=== PATIENT | female | born 1995 | race Hispanic/Latino ===

== ENCOUNTER 2018-02-05 19:11 | Emergency (ER) | payer MEDICAID ==
[2018-02-05] MEDS ORDERED: ACETAMINOPHEN 325 MG TAB ONE (19:27)
[2018-02-05 19:47] LABS: APPEARANCE,URINE Turbid (CLEAR); BILIRUBIN,URINE Negative (NEGATIVE); COLOR,URINE Yellow (YELLOW); GLUCOSE, URINE (UA) >=1000 mg/dL (NEGATIVE); KETONES,URINE Trace mg/dL (NEGATIVE); LEUKOCYTE ESTERASE ,URINE Moderate (NEGATIVE); NITRATE,URINE Negative (NEGATIVE); OCCULT BLOOD,URINE Negative (NEGATIVE); PROTEIN,URINE Negative (NEGATIVE)
[2018-02-05 20:01] LABS: BACTERIA,URINE Many /HPF (None Seen); MUCUS,URINE None Seen LPF (None Seen); RBC,URINE 0-1 /HPF (0-1); SQUAMOUS EPITHELIAL CELL,UR Many /HPF (0-2); TRICHOMONAS,URINE None Seen /LPF (None Seen); YEAST,URINE BUDDING Many /HPF (None Seen)
== END 2018-02-05 20:44 | disposition home or self-care (01) ==
LOC: EDH 19:11
DX: O26.892 Other specified pregnancy related conditions, second trimester (principal); O23.42 Unspecified infection of urinary tract in pregnancy, second trimester; B37.49 Other urogenital candidiasis; G44.209 Tension-type headache, unspecified, not intractable; O24.419 Gestational diabetes mellitus in pregnancy, unspecified control; Z3A.15 15 weeks gestation of pregnancy
CPT/HCPCS: 81001; 82948

== ENCOUNTER 2018-09-11 03:05 | Emergency (ER) | payer MEDICAID ==
[~2018-09-11 03:05] MED LIST: PREN1TAB80 PO
[2018-09-11 03:48] LABS: APPEARANCE,URINE Clear (CLEAR); BILIRUBIN,URINE Negative (NEGATIVE); COLOR,URINE Yellow (YELLOW); GLUCOSE, URINE (UA) Negative (NEGATIVE); KETONES,URINE Negative (NEGATIVE); LEUKOCYTE ESTERASE ,URINE Trace (NEGATIVE); NITRATE,URINE Negative (NEGATIVE); OCCULT BLOOD,URINE Small (NEGATIVE); PROTEIN,URINE Negative (NEGATIVE)
[2018-09-11 03:55] LABS: AMPHET/METH SCREEN,URINE NEGATIVE (NEGATIVE); BARBITURATE SCREEN, URINE NEGATIVE (NEGATIVE); BENZODIAZEPINES SCREEN,URINE NEGATIVE (NEGATIVE); CANNABINOID SCREEN,URINE NEGATIVE (NEGATIVE); COCAINE SCREEN,URINE NEGATIVE (NEGATIVE); OPIATE SCREEN,URINE NEGATIVE (NEGATIVE); PHENCYCLIDINE SCREEN,URINE NEGATIVE (NEGATIVE)
[2018-09-11 03:56] LABS: AMORPHOUS SEDIMENT,UR Moderate /LPF (None Seen); BACTERIA,URINE Few /HPF (None Seen); MUCUS,URINE Many LPF (None Seen); RBC,URINE None Seen /HPF (0-1); SQUAMOUS EPITHELIAL CELL,UR Moderate /HPF (0-2)
[2018-09-11] MEDS ORDERED: ONDANSETRON HCL 4 MG/2 ML VIAL ONE (03:57)
[2018-09-11] MEDS ORDERED: KETOROLAC TROMETHAMINE 30MG/ML ONE (03:57)
[2018-09-11 03:58] LABS: BASOPHILS % (AUTO) 0.5 % (0.0-5.0); EOSINOPHILS % (AUTO) 1.6 % (0.0-8.0); HEMATOCRIT 39.5 % (36-48); LYMPHOCYTES % (AUTO) 20.8 % (21.0-51.0); MEAN CORPUSCULAR HEMOGLOBIN 26.1 pg (27.0-33.0); MEAN CORPUSCULAR HGB CONC 32.1 g/dL (32.0-36.0); MEAN CORPUSCULAR VOLUME 81.4 fL (79-99); MONOCYTES % (AUTO) 5.3 % (3.0-13.0); NEUTROPHILS % (AUTO) 71.8 % (40.0-77.0); NUCLEATED RED BLOOD CELLS 0.2 % (0.0-0.19); PLATELET COUNT (AUTO) 252 K/uL (130-400); RED BLOOD CELL COUNT(AUTO) 4.85 MIL/uL (4.00-5.50); RED CELL DISTRIBUTION WIDTH 16.1 % (11.0-15.5); WHITE BLOOD COUNT (AUTO) 13.2 K/uL (4.8-10.8)
[2018-09-11 04:17] LABS: CREATININE 0.8 mg/dL (0.5-1.5); POTASSIUM 3.7 mmol/L (3.5-5.1)
[2018-09-11 04:21] LABS: ALBUMIN 3.8 g/dL (3.5-5.0); BILIRUBIN,TOTAL 0.3 mg/dL (0.2-1.0); TOTAL PROTEIN, SERUM 7.9 g/dL (6.0-8.3)
== END 2018-09-11 04:51 | disposition home or self-care (01) ==
LOC: EDH 03:05
DX: K80.20 Calculus of gallbladder without cholecystitis without obstruction (principal); R03.0 Elevated blood-pressure reading, without diagnosis of hypertension
CPT/HCPCS: 36415; 76705; 80053; 80305; 81001; 81025; 82150; 83690; 85025; 96374; 96375; 99284; J1885; J2405

== ENCOUNTER 2020-11-10 16:45 | Observation (INO) | payer MEDICAID ==
[~2020-11-10] VITALS: Ht 154.9 cm; Wt 98.4 kg
[2020-11-10 18:14] LABS: APPEARANCE,URINE Cloudy (CLEAR); BILIRUBIN,URINE Negative (NEGATIVE); COLOR,URINE Yellow (YELLOW); GLUCOSE, URINE (UA) TRACE mg/dL (NEGATIVE); KETONES,URINE Negative (NEGATIVE); LEUKOCYTE ESTERASE ,URINE Large (NEGATIVE); NITRATE,URINE Negative (NEGATIVE); OCCULT BLOOD,URINE Negative (NEGATIVE); PROTEIN,URINE Negative (NEGATIVE)
[2020-11-10 18:35] LABS: BACTERIA,URINE Many /HPF (None Seen); RBC,URINE None Seen /HPF (0-1)
[2020-11-10] MEDS ORDERED: LACTATED RINGERS 1000ML IV SCH (18:45)
[2020-11-10 19:24] VITALS: BP 141/65
[2020-11-10] MEDS ORDERED: TERBUTALINE SULFATE VIAL 1MG/ML SQ SCH (20:00)
== END 2020-11-10 22:30 | disposition home or self-care (01) ==
LOC: EDH 16:45 → LDH 16:46
PROVIDERS: ADMIT Internal Medicine; ATTEND Internal Medicine
DX: O98.513 Other viral diseases complicating pregnancy, third trimester (principal); O9A.213 Injury, poisoning and certain other consequences of external causes complicating pregnancy, third trimester; U07.1 COVID-19; O99.891 Other specified diseases and conditions complicating pregnancy; M54.5 Low back pain; L98.8 Other specified disorders of the skin and subcutaneous tissue; Z86.32 Personal history of gestational diabetes; Z87.19 Personal history of other diseases of the digestive system; Z3A.29 29 weeks gestation of pregnancy; V89.2XXA Person injured in unspecified motor-vehicle accident, traffic, initial encounter; Y93.89 Activity, other specified; Y92.410 Unspecified street and highway as the place of occurrence of the external cause
CPT/HCPCS: 59025; 76805; 81001; 87088; 96360; 96361; 96372; 99284; G0378 ×5; J3105; J7120 ×2; U0003